=== PATIENT | male | born 1930 | race Caucasian/White ===

== ENCOUNTER 2016-06-28 21:58 | Inpatient (IN) | payer MEDICARE, OTHER ==
--- NOTE | ~2016-06-28 | HP ---
History And Physical [place] [address] [facility] [place]. [address] NAME: RAJESH GARCIA : 32 STATUS : ADM Coreen PAT#: [id number] AGE: 86 ADM/REG DATE : 06/28/16 MR#: [id number] REPORT SERV DATE: 06/29/16 DICTATED BY: RODNEY DOVER DATE: 06/29/16 REPORT STATUS : Draft TRANSCRIBED BY: MODL DATE: 06/29/16 DATE OF ADMISSION: 06/28/2016 CHIEF COMPLAINT: Weakness and altered mental status. HISTORY OF PRESENT ILLNESS: This is an 86-year-old male with a history of atrial fibrillation, history of CVA, and coronary artery disease, who presents to the emergency room at [facility] with the above-mentioned complaint. History is obtained from Mr. Garcia, but more so from his and daughter, who are at bedside, and reviewing data available on the [employer] system. According to his available data, Mr. Garcia was just fine yesterday in the morning and somewhere around 4 p.m., he started having an episode of chills. His states he had become feverish and had a severe bout of chills and no matter how many blankets she put on him, he continued to shake. Unfortunately, she did not think of checking his temperature. After a while, he wanted to go to the bathroom and she helped him go there, but once he got to the bathroom she stays he completely lost control. He became totally disoriented and confused, did not know what to do and he got so bad that she had to help him back to the bedroom and make him lie down. She called her daughter, and they called EMS, the patient was subsequently brought to the emergency room to be evaluated. According to the daughter, when the EMS got there, he had a temperature of 102 degrees Fahrenheit. During this time, they say he has not had any nausea, vomiting, or diarrhea. He has not had any dysuria, but they feel he might have had to go more frequently than usual. He has not had any cough or any other symptoms at all. in the emergency room, initial workup including a chest x-ray and CT of the brain were unremarkable. EKG showed atrial fibrillation with rapid ventricular response. Urinalysis was not significant. When he presented here, his heart rate was 160 and temperature was 99.7 with a rectal temperature of 102.1. WBC was 15.4. Hospitalist Service was asked to admit him for further evaluation and treatment. At the time of my evaluation, Mr. Garcia was quite confused. He was really unable to give any relevant answers. Most of the review of systems was through the family. He has not had any recent chest pain or palpitations. He did not have any orthopnea. He has not had any recent cough, hemoptysis, night sweats, or weight loss. He has not had any loss of consciousness. No history of nausea, vomiting, diarrhea, or dysuria. No history of hematemesis, hematochezia, or hematuria. No other history of recent travel or exposures other than those mentioned above. PAST MEDICAL HISTORY: Significant for history of atrial fibrillation, coronary artery disease with PTCA and stent placement, history of CVA in the past, essential hypertension, history of diverticulitis, peripheral vascular disease with right carotid endarterectomy, history of CVA with slight left-sided weakness, and history of Clostridium difficile colitis. He has also had an appendectomy and jejunal resection. SOCIAL HISTORY: He has a very remote history of smoking, but denies any alcohol use or History And Physical [address] [address] NAME: RAJESH GARCIA : 32 STATUS : ADM Coreen PAT#: [id number] AGE: 86 ADM/REG DATE : 06/28/16 MR#: [id number] REPORT SERV DATE: 06/29/16 DICTATED BY: RODNEY DOVER DATE: 06/29/16 REPORT STATUS : Draft TRANSCRIBED BY: SHIVA DATE: 06/29/16 recreational drug use. FAMILY HISTORY: Noncontributory. MEDICATIONS: Medications at home were reviewed by me in the chart today and reordered by me. REVIEW OF SYSTEMS: As in history of present illness. All other systems were reviewed and are quite unremarkable. PHYSICAL EXAMINATION: GENERAL: This is a pleasant 86-year-old, quite confused, unable to answer any questions relevantly. He follows some commands. HEENT: His head is atraumatic, normocephalic. The pupils are equal and reacting to light and accommodating. External ocular muscles are intact. Membranes are moist and pink. Sclerae are nonicteric. NECK: Supple with no jugular venous distention, lymphadenopathy, or thyromegaly. LUNGS: Clear to auscultation with no wheezes, rubs, or crackles. HEART: Heart sounds are regular with no murmurs, rubs, or gallops. ABDOMEN: Soft, nontender. Bowel sounds are present. EXTREMITIES: Show no cyanosis, clubbing, or edema. NEUROLOGIC: Grossly intact. No focal sensory or motor deficits. Higher functions appeared intact. Gait was not examined. VITAL SIGNS: Today show a temperature of 101.2, pulse 102, respirations 23 a minute, blood pressure is 132/98 upon arrival, oxygen saturations are 95%, breathing 2 L of oxygen via nasal cannula. LABORATORY DATA: Reviewed on the [employer] system showed a normal CMP with a blood glucose of 109. Liver numbers were within normal limits. Digoxin level was 0.3. Lactate was 1.7 today. CBC showed a white blood cell count of 15,400, hemoglobin was 13.6, hematocrit 41.4, and platelet count was 260,000. Urinalysis was unremarkable. Films of the chest x-ray were reviewed by me on the PACS today and interpreted by me. Per my interpretation, there is normal bony architecture with volume loss on the right side with no new infiltrates, consolidations, or pleural effusions seen. Films of the CT scan of his brain were reviewed by me on the PACS today and official Radiology comments were also reviewed. There is no acute intracranial process at this time. A 12-lead EKG done in the emergency room was reviewed and interpreted by me. There is atrial fibrillation with rapid ventricular response at 142 per minute. IMPRESSION: 1. Generalized weakness. 2. Altered mental status. 3. Sepsis. History And Physical [address] [address] NAME: RAJESH GARCIA : 32 STATUS : ADM Coreen PAT#: [id number] AGE: 86 ADM/REG DATE : 06/28/16 MR#: [id number] REPORT SERV DATE: 06/29/16 DICTATED BY: RODNEY DOVER DATE: 06/29/16 REPORT STATUS : Draft TRANSCRIBED BY: MODL DATE: 06/29/16 4. Hypertension. 5. Atrial fibrillation with rapid ventricular response. 6. Coronary artery disease with PTCA and stent placement. 7. History of cerebrovascular accident. 8. History of diverticulitis. 9. Peripheral vascular disease with right carotid endarterectomy. 10.History of Clostridium difficile colitis. PLAN: We will admit Mr. Garcia to the Hospitalist Service with telemetry for a 24-hour observation period. After cultures are drawn, we will start him on empiric IV antibiotics. Check his stool for C. difficile. We will also check a followup lactate. It is unclear where the source of the infection is. His lungs appear clear. There is no urinary tract infection. I question if he has some diverticulitis or Clostridium difficile colitis, although he does not complain, there have been no GI symptoms at all. Meanwhile, we will start him on IV fluids for volume resuscitation. Check chemistry, electrolytes, and replace as needed. We will also start him on Cardizem infusion for rate control. He is on Eliquis, which we will be continuing as well. Please see today's orders for details. I have discussed the above plans with the patient and the family. Questions were answered and they are agreeable to the above recommendations. Hospitalist Service will be following him during his stay. MR/MODL Rodney Dover M.D. / [id number] CC: MD Jose Alberto Limon M.D.
--- NOTE | ~2016-06-28 | DS ---
Discharge Summary [facility] [address] [place]. [address] NAME: RAJESH GARCIA : 32 STATUS : ADM IN [facility]#: [id number] AGE: 86 ADM/REG DATE : 06/29/16 MR#: [id number] REPORT SERV DATE: 07/05/16 DICTATED BY: SCHUYLER ESPANA DATE: 07/05/16 REPORT STATUS : Draft TRANSCRIBED BY: MODL DATE: 07/05/16 ADMISSION DATE: 06/29/2016 DISCHARGE DATE: 07/05/2016 DISCHARGE DIAGNOSES: 1. Atrial fibrillation with rapid ventricular response. 2. 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 3. Hematuria most likely due to Smith trauma. 4. History of cerebrovascular accident. 5. Generalized debility. 6. Sepsis, now resolved. 7. No evidence of pneumonia on the CT scan. 8. Possibility of a bladder tissue mass or clot on abdominal CT, currently stable and no intervention planned. 9. History of coronary artery disease. 10.Metabolic encephalopathy, now resolved. 11.He has history of diverticulitis, history of peripheral vascular disease with right carotid endarterectomy. He has a slight left-sided weakness due to prior cerebrovascular accident. He also has a history of Clostridium difficile colitis. CONSULTANTS DURING THIS HOSPITALIZATION: Dr. Nunez of Urology. INVASIVE PROCEDURES DONE DURING THIS HOSPITALIZATION: None. BRIEF HISTORY OF PRESENT ILLNESS: The patient is an 86-year-old male, who had altered mental status, weakness, fevers, and chills, so he was admitted. For detailed history and physical exam, please see note dictated by Dr. Rodney Villegas on 06/29/2016. HOSPITAL COURSE: After being admitted to the hospital, this patient was given broad-spectrum antibiotics. Aggressive IV fluid resuscitations were done. CT of the brain, noncontrasted was done in the emergency room which showed no acute CVA or other acute intracranial pathology. Stable moderate diffuse cerebral involutional changes and deep white matter changes, chronic microvascular ischemic changes, small to moderate old CVA, right posterior parietal watershed zone was noted. After being fluid resuscitated, this patient continually started to have fever. There was no clear location or source of an infection as chest x-ray was done that showed low lung volumes, basilar atelectasis, and possible left pleural fluid. CT without contrast of the chest was done, which showed extensive calcified atherosclerotic disease within the chest, abdomen, and pelvis, small bilateral pleural effusions and basilar atelectasis with consolidation. These findings were improved prior to previous focal region of scarring of the lung that anterior aspect of the left kidney. Stable cysts within the pancreas and the liver. The bladder was decompressed with a Smith catheter. There was a soft-tissue in the posterior and inferior aspect of the bladder that are consistent with a history of blood clots and hematuria. Cystoscopy is recommended to exclude a bladder neoplasm, so Urology saw the patient in consultation and because of the patient's underlying history and altered mental status, it would be not munoz to have the patient undergo anesthesia. I discussed his care with Dr. Nunez, and Dr. Nunez agreed that we can put Discharge Summary [address] [place]. [address] NAME: RAJESH GARCIA : 32 STATUS : ADM IN [facility]#: [id number] AGE: 86 ADM/REG DATE : 06/29/16 MR#: [id number] REPORT SERV DATE: 07/05/16 DICTATED BY: SCHUYLER ESPANA DATE: 07/05/16 REPORT STATUS : Draft TRANSCRIBED BY: MODRachael DATE: 07/05/16 him on Flomax, remove his Smith catheter and see how he does and then at a later date pursue cystoscopy if necessary. This patient's Eliquis was hold initially, but then his hematuria significantly improved. He still slightly had maybe mild pink urine, but he has not had any significant blood loss and his H and H remains stable on Eliquis. The 's concern was that he still remains confused. However, his confusion has improved. 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 This could be followed up in the outpatient setting after rehab. DISCHARGE DISPOSITION: To rehab. DISCHARGE ACTIVITY: Per facility. DISCHARGE DIET: Low sodium diet. DISCHARGE MEDICATIONS: Eliquis 5 mg p.o. twice daily, aspirin 81 mg once daily, digoxin 0.125 mg once daily, Remeron 30 mg once at bedtime, Lopressor 50 mg three times daily, Prilosec 40 mg once every morning, Tylenol 650 mg once daily, Seroquel 25 mg once at bedtime, Flomax 0.4 mg once daily, Crestor 10 mg once daily, Probiotics as needed. DISCHARGE FOLLOWUP: With Dr. Jose Alberto Cunningham post rehab. More than 35 minutes spent planning this patient's discharge, reconciling medications, discussing hospital care over the phone with the , and documenting this discharge in signing all forms for [facility]. DICTATED BY: Anh Lawrence/SHIVA Schuyler Espana M.D. / [id number] CC: Anh Lawrence Richard [facility]
--- NOTE | ~2016-06-28 | CN ---
Consultation Report [place] [id number] [place]. [address] NAME: RAJESH GARCIA : 32 STATUS : ADM IN PAT#: [id number] AGE: 86 ADM/REG DATE : 06/29/16 MR#: [id number] REPORT SERV DATE: 07/01/16 DICTATED BY: Leslie NAVA DATE: 06/30/16 REPORT STATUS : Draft TRANSCRIBED BY: MODL DATE: 06/30/16 CONSULTATION DATE OF CONSULTATION: 06/30/2016 CHIEF COMPLAINT: Gross hematuria. HISTORY OF PRESENT ILLNESS: Mr. Garcia is an 86-year-old white male, admitted with sepsis of unknown origin and acute mental status change as well as lethargy. It is unclear to me whether he had a catheter when he came in, but I am inclined to think that he did not. At any rate, he had an episode of chills and fever, came to the emergency room. His maximum temperature was 102. There were no particular symptoms except maybe for some frequency. His admission urinalysis was fairly unremarkable. Catheter now has pink-tinged urine. There is no documented trauma. PAST MEDICAL HISTORY: 1. Atrial fibrillation. 2. CAD, status post PTCA. 3. Previous CVA. 4. Hypertension. 5. Diverticulitis. 6. Peripheral vascular disease. 7. C difficile colitis. PAST SURGICAL HISTORY: 1. Appendectomy. 2. Jejunal resection. 3. Right carotid endarterectomy. 4. PTCA with stent. HOME MEDICATIONS: Acetaminophen, Eliquis, aspirin, digoxin, metoprolol, mirtazapine, omeprazole, rosuvastatin, and probiotic. ALLERGIES: NO KNOWN DRUG ALLERGIES. FAMILY HISTORY: Negative for urologic disease. SOCIAL HISTORY: Negative for current smoking. REVIEW OF SYSTEMS: A full 12-point review of systems is negative as obtained at the bedside from available conversants. PHYSICAL EXAMINATION: GENERAL: Pleasant 86-year-old white male, appears confused. VITAL SIGNS: Currently Consultation Report [place] [id number] [place]. [address] NAME: RAJESH GARCIA : 32 STATUS : ADM IN PAT#: [id number] AGE: 86 ADM/REG DATE : 06/29/16 MR#: [id number] REPORT SERV DATE: 05/25/17 DICTATED BY: Leslie NAVA DATE: 06/30/16 REPORT STATUS : Draft TRANSCRIBED BY: SHIVA DATE: 06/30/16 afebrile, T-max 102. HEENT: Normocephalic, atraumatic. LUNGS: No respiratory distress. HEART: Regular rate and rhythm. ABDOMEN: Nontender, nondistended. No suprapubic distention. No CVA tenderness. Indwelling Smith catheter draining light pink to clear urine without difficulty. EXTREMITIES: No peripheral edema noted. PERTINENT LABORATORY: Creatinine 0.9. Hemoglobin 13.1, white count 10,400. CT of the abdomen and pelvis was reviewed and shows decompressed bladder with some soft tissue in the bladder consistent with clot or tumor. He has no evidence of hydronephrosis or other significant pathology. IMPRESSION: 1. Hematuria, mild, possibly traumatic. 2. Possible filling defect of the bladder consistent with clot or tumor. PLAN: 1. I would leave his Smith for now until the source of his confusion is better elucidated. If it worsens, he would need a 24-Green[place] 3-way Smith catheter. 2. Depending upon his clinical course, he will need an eventual cystoscopy, but there is no reason to proceed with that now. I will follow while he is in the hospital. JPEve/SHIVA Leslie Nava M.D. / [id number] CC: MD Jose Alberto Limon M.D.
[2016-06-28 21:47] LABS: BASOPHILS 0.2 %; BASOPHILS ABSOLUTE 0.03 10/3/uL (0.0-0.16); EOSINOPHILS 0.2 %; EOSINOPHILS ABSOLUTE 0.03 10/3/uL (0.0-0.53); ER CBC TAT 0 Hrs 12 Mins; HEMATOCRIT 41.4 % (40.0-51.0); HEMOGLOBIN 13.6 g/dL (13.6-17.8); IMMATURE GRANULOCYTES 0.5 %; IMMATURE GRANULOCYTES ABSOLUTE 0.07 10/3/uL (0.0-0.11); LYMPHOCYTES 1.8 %; LYMPHOCYTES ABSOLUTE 0.28 10/3/uL (0.67-4.30); MEAN CORPUS HGB CONC 32.9 g/dL (32.0-36.0); MEAN CORPUSCULAR HEMOGLOB 31.3 pg (26.0-34.0); MEAN PLATELET VOLUME 10.8 fL (9.2-13.0); MONOCYTES 4.8 %; MONOCYTES ABSOLUTE 0.73 10/3/uL (0.21-1.20); NEUTROPHILS 92.5 %; NEUTROPHILS ABSOLUTE 14.22 10/3/uL (2.02-8.40); RBC DISTRIBUTION WIDTH 15.7 % (12.0-16.0); RED CELL COUNT 4.35 10/6/uL (4.7-6.1); WHITE BLOOD CELLS 15.4 10/3/uL (4.5-10.5)
[2016-06-28 21:48] LABS: MANUAL DIFF NO %; MEAN CORPUSCULAR VOLUME 95.2 fL (80-100); PLATELET COUNT 260 10/3/uL (150-400)
[2016-06-28 21:51] LABS: INTERNATIONAL NORMAL RATI 1.3 UNITS (-); PARTIAL THROMBO TIME 32.2 SEC (22.5-37.2)
[2016-06-28 21:58] LABS: WBC (NOT ORDERED) (RFLEX) 0 (0-5)
[~2016-06-28 21:58] MED LIST: ASA5GR PO; ASAB PO; ASABAYER PO; BEN25 PO; C5 PO; CARDCD120 PO; COUMADIN7.5 MG PO; CULTURELLE PO; DIGITEK0.125 MG PO; FLAGIV500 PO; HYDROCHLOROT25 MG PO; LAN125 PO; LIPITOR40 PO; LIPITOR80 MG PO; LOP100 PO; LOP25 PO; LOP50 PO; LOTEMAX0.5 % OPH; LOVENOX1C SC; NORCO1 TA1 PO; PCET PO; PRAVACHOL40 MG PO; PROAIR HFA PO; TOPXL100 PO; TOPXL50 PO; VANC125UDL PO; VASOTEC10 PO; VASOTEC20 MG PO; VASOTEC5 PO; Z-PAK PO
[2016-06-28 21:59] LABS: LACTATE 1.7 MMOL/L (0.3-2.4)
[2016-06-28] MEDS ORDERED: LAN125 PO (21:59)
[2016-06-28] MEDS ORDERED: REMERON30 MG PO (21:59)
[2016-06-28] MEDS ORDERED: CRESTOR10 PO (22:00)
[2016-06-28] MEDS ORDERED: LOP25 PO (22:00)
[2016-06-28] MEDS ORDERED: ELIQUIS 5 MG TAB5 MG PO (22:01)
[2016-06-28] MEDS ORDERED: PROBIOTIC PO (22:02)
[2016-06-28] MEDS ORDERED: ASAB PO (22:02)
[2016-06-28] MEDS ORDERED: PRILOSEC40 MG PO (22:02)
[2016-06-28] MEDS ORDERED: 8 HOUR650 MG PO (22:03)
[2016-06-28 22:08] LABS: CALCIUM, SERUM 8.7 MG/DL (8.5-10.4); CHLORIDE, SERUM 109 MMOL/L (96-112); CO2 (CARBON DIOXIDE) 25 MMOL/L (24-34); CREATININE 0.93 MG/DL (0.70-1.30); DIGOXIN 0.3 NG/ML (0.8-2.0); GFR AFRICAN AMERICAN 87 ML/MIN (>=60); GFR NON AFRICAN AMERICAN 75 ML/MIN (>=60); GLUCOSE, SERUM 109 MG/DL (60-99); POTASSIUM, SERUM 3.7 MMOL/L (3.5-5.3); SGOT(AST) 16 U/L (5-40); SGPT(ALT) 17 U/L (5-65); SODIUM, SERUM 141 MMOL/L (135-148); TOTAL PROTEIN 7.4 G/DL (6.0-8.5)
[2016-06-28 22:09] LABS: A/G RATIO 0.8 (0.7-1.9); ALBUMIN 3.2 G/DL (3.5-5.0); ALKALINE PHOSPHATASE 88 U/L (45-117); BUN (BLOOD UREA NITROGEN) 16 MG/DL (6-23); GLOBULIN 4.2 G/DL (2.5-4.1); TOTAL BILIRUBIN 0.9 MG/DL (0-1.2)
[2016-06-28 22:10] LABS: ASCORBIC ACID (UR NOT ORDER) NEG (NEG); BILIRUBIN, URINE NEGATIVE (NEG); ER URINALYSIS TAT 0 Hrs 13 Mins; KETONE, URINE TRACE MG/DL (NEG); LEUKOCYTE ESTERASE(NOT OR NEG (NEG); NITRITE (URINE) NEG (NEG)
[2016-06-28 22:32] LABS: PROCALCITONIN 0.31 ng/mL (<0.5)
[2016-06-29 05:50] LABS: BASOPHILS 0.3 %; BASOPHILS ABSOLUTE 0.03 10/3/uL (0.0-0.16); EOSINOPHILS 0.5 %; EOSINOPHILS ABSOLUTE 0.06 10/3/uL (0.0-0.53); HEMATOCRIT 39.5 % (40.0-51.0); IMMATURE GRANULOCYTES 0.3 %; IMMATURE GRANULOCYTES ABSOLUTE 0.04 10/3/uL (0.0-0.11); LYMPHOCYTES 7.5 %; LYMPHOCYTES ABSOLUTE 0.87 10/3/uL (0.67-4.30); MEAN CORPUS HGB CONC 32.9 g/dL (32.0-36.0); MEAN CORPUSCULAR HEMOGLOB 31.6 pg (26.0-34.0); MEAN CORPUSCULAR VOLUME 96.1 fL (80-100); MEAN PLATELET VOLUME 10.7 fL (9.2-13.0); MONOCYTES 7.1 %; MONOCYTES ABSOLUTE 0.82 10/3/uL (0.21-1.20); NEUTROPHILS 84.3 %; NEUTROPHILS ABSOLUTE 9.72 10/3/uL (2.02-8.40); PLATELET COUNT 249 10/3/uL (150-400); RBC DISTRIBUTION WIDTH 15.8 % (12.0-16.0); RED CELL COUNT 4.11 10/6/uL (4.7-6.1); WHITE BLOOD CELLS 11.5 10/3/uL (4.5-10.5)
[2016-06-29 05:54] LABS: MANUAL DIFF NO %
[2016-06-29 06:11] LABS: CALCIUM, SERUM 8.6 MG/DL (8.5-10.4); CHLORIDE, SERUM 113 MMOL/L (96-112); CO2 (CARBON DIOXIDE) 25 MMOL/L (24-34); CREATININE 0.75 MG/DL (0.70-1.30); GFR AFRICAN AMERICAN 98 ML/MIN (>=60); GFR NON AFRICAN AMERICAN 84 ML/MIN (>=60); GLUCOSE, SERUM 101 MG/DL (60-99); POTASSIUM, SERUM 3.7 MMOL/L (3.5-5.3); SODIUM, SERUM 146 MMOL/L (135-148)
[2016-06-29 06:14] LABS: BUN (BLOOD UREA NITROGEN) 11 MG/DL (6-23); PHOSPHORUS, SERUM 3.1 MG/DL (2.5-4.5)
[2016-06-29 21:02] LABS: HEMATOCRIT 38.5 % (40.0-51.0); HEMOGLOBIN 12.6 g/dL (13.6-17.8)
[2016-06-30 01:26] LABS: BASOPHILS 0.2 %; BASOPHILS ABSOLUTE 0.02 10/3/uL (0.0-0.16); EOSINOPHILS 0.1 %; EOSINOPHILS ABSOLUTE 0.01 10/3/uL (0.0-0.53); HEMATOCRIT 38.8 % (40.0-51.0); HEMOGLOBIN 13.1 g/dL (13.6-17.8); IMMATURE GRANULOCYTES 0.6 %; IMMATURE GRANULOCYTES ABSOLUTE 0.06 10/3/uL (0.0-0.11); LYMPHOCYTES 6.8 %; LYMPHOCYTES ABSOLUTE 0.71 10/3/uL (0.67-4.30); MEAN CORPUS HGB CONC 33.8 g/dL (32.0-36.0); MEAN CORPUSCULAR HEMOGLOB 32.1 pg (26.0-34.0); MEAN CORPUSCULAR VOLUME 95.1 fL (80-100); MEAN PLATELET VOLUME 10.2 fL (9.2-13.0); MONOCYTES ABSOLUTE 0.62 10/3/uL (0.21-1.20); NEUTROPHILS 86.3 %; NEUTROPHILS ABSOLUTE 8.96 10/3/uL (2.02-8.40); PLATELET COUNT 231 10/3/uL (150-400); RBC DISTRIBUTION WIDTH 15.7 % (12.0-16.0); RED CELL COUNT 4.08 10/6/uL (4.7-6.1); WHITE BLOOD CELLS 10.4 10/3/uL (4.5-10.5)
[2016-06-30 01:28] LABS: MANUAL DIFF NO %
[2016-06-30 01:42] LABS: BUN (BLOOD UREA NITROGEN) 10 MG/DL (6-23); CALCIUM, SERUM 8.1 MG/DL (8.5-10.4); CHLORIDE, SERUM 108 MMOL/L (96-112); CO2 (CARBON DIOXIDE) 26 MMOL/L (24-34); GFR AFRICAN AMERICAN 91 ML/MIN (>=60); GFR NON AFRICAN AMERICAN 78 ML/MIN (>=60); GLUCOSE, SERUM 114 MG/DL (60-99); PHOSPHORUS, SERUM 2.3 MG/DL (2.5-4.5); POTASSIUM, SERUM 3.5 MMOL/L (3.5-5.3)
[2016-06-30 01:46] LABS: SODIUM, SERUM 139 MMOL/L (135-148)
[2016-06-30 10:11] LABS: HEMATOCRIT 39.8 % (40.0-51.0); HEMOGLOBIN 13.1 g/dL (13.6-17.8)
[2016-07-01 05:59] LABS: BASOPHILS 0.1 %; BASOPHILS ABSOLUTE 0.01 10/3/uL (0.0-0.16); EOSINOPHILS 1.1 %; EOSINOPHILS ABSOLUTE 0.09 10/3/uL (0.0-0.53); HEMATOCRIT 38.8 % (40.0-51.0); HEMOGLOBIN 13.2 g/dL (13.6-17.8); IMMATURE GRANULOCYTES 0.4 %; IMMATURE GRANULOCYTES ABSOLUTE 0.03 10/3/uL (0.0-0.11); LYMPHOCYTES 9.3 %; LYMPHOCYTES ABSOLUTE 0.79 10/3/uL (0.67-4.30); MEAN CORPUSCULAR HEMOGLOB 32.1 pg (26.0-34.0); MEAN CORPUSCULAR VOLUME 94.4 fL (80-100); MEAN PLATELET VOLUME 10.7 fL (9.2-13.0); MONOCYTES 11.8 %; NEUTROPHILS 77.3 %; NEUTROPHILS ABSOLUTE 6.59 10/3/uL (2.02-8.40); PLATELET COUNT 241 10/3/uL (150-400); RBC DISTRIBUTION WIDTH 15.4 % (12.0-16.0); RED CELL COUNT 4.11 10/6/uL (4.7-6.1); WHITE BLOOD CELLS 8.5 10/3/uL (4.5-10.5)
[2016-07-01 06:02] LABS: MANUAL DIFF NO %
[2016-07-01 06:10] LABS: ALBUMIN 2.6 G/DL (3.5-5.0); BUN (BLOOD UREA NITROGEN) 12 MG/DL (6-23); CALCIUM, SERUM 8.4 MG/DL (8.5-10.4); CHLORIDE, SERUM 107 MMOL/L (96-112); CO2 (CARBON DIOXIDE) 27 MMOL/L (24-34); CREATININE 0.79 MG/DL (0.70-1.30); GFR AFRICAN AMERICAN 96 ML/MIN (>=60); GFR NON AFRICAN AMERICAN 82 ML/MIN (>=60); GLUCOSE, SERUM 101 MG/DL (60-99); PHOSPHORUS, SERUM 2.7 MG/DL (2.5-4.5); POTASSIUM, SERUM 3.1 MMOL/L (3.5-5.3); SODIUM, SERUM 141 MMOL/L (135-148)
[2016-07-02 05:27] LABS: BASOPHILS 0.2 %; BASOPHILS ABSOLUTE 0.02 10/3/uL (0.0-0.16); EOSINOPHILS 3.1 %; EOSINOPHILS ABSOLUTE 0.26 10/3/uL (0.0-0.53); HEMATOCRIT 39.8 % (40.0-51.0); HEMOGLOBIN 13.1 g/dL (13.6-17.8); IMMATURE GRANULOCYTES 0.4 %; IMMATURE GRANULOCYTES ABSOLUTE 0.03 10/3/uL (0.0-0.11); LYMPHOCYTES 7.1 %; MANUAL DIFF NO %; MEAN CORPUS HGB CONC 32.9 g/dL (32.0-36.0); MEAN CORPUSCULAR HEMOGLOB 31.4 pg (26.0-34.0); MEAN CORPUSCULAR VOLUME 95.4 fL (80-100); MEAN PLATELET VOLUME 10.4 fL (9.2-13.0); MONOCYTES ABSOLUTE 0.68 10/3/uL (0.21-1.20); NEUTROPHILS 81.2 %; PLATELET COUNT 244 10/3/uL (150-400); RBC DISTRIBUTION WIDTH 15.6 % (12.0-16.0); RED CELL COUNT 4.17 10/6/uL (4.7-6.1); WHITE BLOOD CELLS 8.5 10/3/uL (4.5-10.5)
[2016-07-02 05:42] LABS: BUN (BLOOD UREA NITROGEN) 12 MG/DL (6-23); CHLORIDE, SERUM 113 MMOL/L (96-112); CO2 (CARBON DIOXIDE) 24 MMOL/L (24-34); CREATININE 0.73 MG/DL (0.70-1.30); GFR AFRICAN AMERICAN 99 ML/MIN (>=60); GFR NON AFRICAN AMERICAN 85 ML/MIN (>=60); GLUCOSE, SERUM 101 MG/DL (60-99); PHOSPHORUS, SERUM 2.3 MG/DL (2.5-4.5); POTASSIUM, SERUM 3.5 MMOL/L (3.5-5.3); SODIUM, SERUM 143 MMOL/L (135-148)
[2016-07-03 06:56] LABS: BASOPHILS 0.3 %; BASOPHILS ABSOLUTE 0.03 10/3/uL (0.0-0.16); EOSINOPHILS 0.7 %; EOSINOPHILS ABSOLUTE 0.08 10/3/uL (0.0-0.53); HEMATOCRIT 43.4 % (40.0-51.0); HEMOGLOBIN 14.6 g/dL (13.6-17.8); IMMATURE GRANULOCYTES 0.5 %; IMMATURE GRANULOCYTES ABSOLUTE 0.05 10/3/uL (0.0-0.11); LYMPHOCYTES 9.4 %; LYMPHOCYTES ABSOLUTE 1.02 10/3/uL (0.67-4.30); MEAN CORPUS HGB CONC 33.6 g/dL (32.0-36.0); MEAN CORPUSCULAR HEMOGLOB 31.7 pg (26.0-34.0); MEAN CORPUSCULAR VOLUME 94.1 fL (80-100); MEAN PLATELET VOLUME 10.4 fL (9.2-13.0); MONOCYTES 7.9 %; MONOCYTES ABSOLUTE 0.86 10/3/uL (0.21-1.20); NEUTROPHILS 81.2 %; NEUTROPHILS ABSOLUTE 8.78 10/3/uL (2.02-8.40); PLATELET COUNT 308 10/3/uL (150-400); RBC DISTRIBUTION WIDTH 15.3 % (12.0-16.0); RED CELL COUNT 4.61 10/6/uL (4.7-6.1); WHITE BLOOD CELLS 10.8 10/3/uL (4.5-10.5)
[2016-07-03 07:05] LABS: MANUAL DIFF NO %
[2016-07-03 07:11] LABS: BUN (BLOOD UREA NITROGEN) 11 MG/DL (6-23); CALCIUM, SERUM 8.9 MG/DL (8.5-10.4); CHLORIDE, SERUM 111 MMOL/L (96-112); CO2 (CARBON DIOXIDE) 27 MMOL/L (24-34); CREATININE 0.83 MG/DL (0.70-1.30); GFR AFRICAN AMERICAN 94 ML/MIN (>=60); GFR NON AFRICAN AMERICAN 81 ML/MIN (>=60); GLUCOSE, SERUM 108 MG/DL (60-99); POTASSIUM, SERUM 3.5 MMOL/L (3.5-5.3); SODIUM, SERUM 145 MMOL/L (135-148)
[2016-07-04 05:37] LABS: BASOPHILS 0.4 %; BASOPHILS ABSOLUTE 0.03 10/3/uL (0.0-0.16); EOSINOPHILS 4.2 %; EOSINOPHILS ABSOLUTE 0.32 10/3/uL (0.0-0.53); HEMATOCRIT 39.2 % (40.0-51.0); HEMOGLOBIN 12.9 g/dL (13.6-17.8); IMMATURE GRANULOCYTES 0.6 %; IMMATURE GRANULOCYTES ABSOLUTE 0.05 10/3/uL (0.0-0.11); LYMPHOCYTES 12.6 %; LYMPHOCYTES ABSOLUTE 0.97 10/3/uL (0.67-4.30); MEAN CORPUS HGB CONC 32.9 g/dL (32.0-36.0); MEAN CORPUSCULAR HEMOGLOB 31.2 pg (26.0-34.0); MEAN CORPUSCULAR VOLUME 94.7 fL (80-100); MEAN PLATELET VOLUME 10.4 fL (9.2-13.0); MONOCYTES 8.3 %; MONOCYTES ABSOLUTE 0.64 10/3/uL (0.21-1.20); NEUTROPHILS 73.9 %; NEUTROPHILS ABSOLUTE 5.69 10/3/uL (2.02-8.40); PLATELET COUNT 275 10/3/uL (150-400); RBC DISTRIBUTION WIDTH 15.4 % (12.0-16.0); RED CELL COUNT 4.14 10/6/uL (4.7-6.1); WHITE BLOOD CELLS 7.7 10/3/uL (4.5-10.5)
[2016-07-04 05:38] LABS: MANUAL DIFF NO %
[2016-07-04 05:50] LABS: ALBUMIN 2.6 G/DL (3.5-5.0); BUN (BLOOD UREA NITROGEN) 13 MG/DL (6-23); CALCIUM, SERUM 8.6 MG/DL (8.5-10.4); CHLORIDE, SERUM 111 MMOL/L (96-112); CO2 (CARBON DIOXIDE) 27 MMOL/L (24-34); CREATININE 0.69 MG/DL (0.70-1.30); GFR AFRICAN AMERICAN 101 ML/MIN (>=60); GFR NON AFRICAN AMERICAN 87 ML/MIN (>=60); GLUCOSE, SERUM 96 MG/DL (60-99); PHOSPHORUS, SERUM 2.9 MG/DL (2.5-4.5); POTASSIUM, SERUM 3.4 MMOL/L (3.5-5.3); SODIUM, SERUM 145 MMOL/L (135-148)
[2016-07-05 06:00] LABS: ALBUMIN 2.7 G/DL (3.5-5.0); BUN (BLOOD UREA NITROGEN) 16 MG/DL (6-23); CALCIUM, SERUM 8.8 MG/DL (8.5-10.4); CHLORIDE, SERUM 111 MMOL/L (96-112); CO2 (CARBON DIOXIDE) 23 MMOL/L (24-34); CREATININE 0.85 MG/DL (0.70-1.30); GFR AFRICAN AMERICAN 93 ML/MIN (>=60); GFR NON AFRICAN AMERICAN 80 ML/MIN (>=60); GLUCOSE, SERUM 102 MG/DL (60-99); PHOSPHORUS, SERUM 3.2 MG/DL (2.5-4.5); POTASSIUM, SERUM 3.8 MMOL/L (3.5-5.3); SODIUM, SERUM 143 MMOL/L (135-148)
== END 2016-07-07 18:00 | DRG 871 ==
LOC: ER 21:58 → 6NO 22:00
PROVIDERS: Hospitalist; Internal Medicine; Nurse Practitioner Acute Care
DX: A41.9 Sepsis, unspecified organism (principal); G93.41 Metabolic encephalopathy; K86.2 Cyst of pancreas; I69.354 Hemiplegia and hemiparesis following cerebral infarction affecting left non-dominant side; F05 Delirium due to known physiological condition; T83.83XA Hemorrhage due to genitourinary prosthetic devices, implants and grafts, initial encounter; F01.50 Vascular dementia, unspecified severity, without behavioral disturbance, psychotic disturbance, mood disturbance, and anxiety; I25.10 Atherosclerotic heart disease of native coronary artery without angina pectoris; I73.9 Peripheral vascular disease, unspecified; Y84.6 Urinary catheterization as the cause of abnormal reaction of the patient, or of later complication, without mention of misadventure at the time of the procedure; N32.89 Other specified disorders of bladder; K76.89 Other specified diseases of liver; Z95.5 Presence of coronary angioplasty implant and graft; Z90.49 Acquired absence of other specified parts of digestive tract; Z87.891 Personal history of nicotine dependence; Z95.828 Presence of other vascular implants and grafts; Z86.19 Personal history of other infectious and parasitic diseases; Z79.82 Long term (current) use of aspirin
CPT/HCPCS: 70450; 71010; 71250; 74176; 80048; 80053; 80069; 80162; 81001; 83605; 83735; 84100; 84132; 84145; 84443; 85014; 85018; 85025; 85610; 85730; 86713; 87040; 87449; 93005; 96374; 97110-GP; 97116-GP; 97163-GP; 97530-GP; 99285; A9270-GY; G8978-CK-GP; G8979-CJ-GP; J0360; J2543; J3370

== ENCOUNTER 2016-07-23 20:03 | Inpatient (IN) | payer MEDICARE, OTHER ==
--- NOTE | ~2016-07-23 | DS ---
Discharge Summary [facility] [address] [place]. [address] NAME: RAJESH GARCIA : 32 STATUS : DIS IN PAT#: [id number] AGE: 86 ADM/REG DATE : 07/24/16 MR#: [id number] REPORT SERV DATE: 07/26/16 DICTATED BY: ROSMERY HAMMOND II DATE: 07/25/16 REPORT STATUS : Draft TRANSCRIBED BY: MODL DATE: 07/25/16 ADMISSION DATE: 07/24/2016 DISCHARGE DATE: 07/25/2016 DISCHARGE DIAGNOSES: 1. Likely gastroenteritis. 2. Acute kidney injury. 3. Atrial fibrillation with rapid ventricular rate. 4. Leukocytosis and tachycardia, meeting criteria for sepsis, though more likely related to viral illness and dehydration. 5. History of Clostridium difficile. 6. History of coronary artery disease. 7. History of peptic ulcer disease. 8. History of hypertension. 9. History of cerebrovascular accident. BRIEF HISTORY OF PRESENT ILLNESS: The patient is an 86-year-old male with the above history, who presented to [facility] due to acute nausea, vomiting, and diarrhea, found to have leukocytosis and EFRAIN on admission. For detailed history and physical examination, please see Dr. eVlasquez's note from 07/24/2016. HOSPITAL COURSE: On admission, the patient's C. difficile was negative. Parasite screen and fecal leukocytes were negative. Lactate was normal. He had a mildly elevated white count of 15.9 and his creatinine was elevated at 1.47. He was initially started on Zosyn as the CT of his abdomen showed a fluid collection in the gallbladder fossa, measuring 10 x 24 mm, which may represent the gallbladder or postsurgical fluid if the patient is status post cholecystectomy. There was a band of soft tissue thickening extending anterior to this over the hepatic flexure, containing some air bubbles, measuring 70 x 36 mm, possibly representing a fistula forming abscess or postsurgical change. Otherwise, liquid stool throughout the colon which may be due to underlying gastroenteritis or diarrheal illness. No obstruction noted. Minimal diverticulosis of the sigmoid colon without evidence of acute diverticulitis. Otherwise, a stable cystic lesion in the pancreatic tail measuring up to 24 mm in size with recommendation for attention on CT followup. A gallbladder ultrasound was subsequently done to evaluate and showed the patient was status post cholecystectomy with a trace amount of fluid in the gallbladder fossa. Interestingly enough, neither the patient nor his ever remember having a cholecystectomy and after talking with Radiology, it is possible his gallbladder is extremely contracted; however, it did appear to be surgically absent. There are no records from any surgery here that show the patient has had a cholecystectomy. The patient is completely asymptomatic in his right upper quadrant and seems clinically irrelevant at this point, as the patient likely just had a viral or food- borne gastroenteritis, which has subsequently resolved fairly quickly. He was given fluids, and his EFRAIN is now back to within normal limits at 0.97, and white count also normal. He is tolerating a diet, passing his bowels, and otherwise no complaints, so we will let him go home and follow up with his primary care physician, Dr. Cunningham. Also of note, the patient was admitted with AFib with RVR, heart rate in the 110s to 120s. He was briefly placed on a Cardizem drip and his home metoprolol was resumed. The drip was quickly discontinued with Discharge Summary [address] [place]. [address] NAME: RAJESH GARCIA : 34 STATUS : DIS IN PAT#: [id number] AGE: 86 ADM/REG DATE : 07/24/16 MR#: [id number] REPORT SERV DATE: 07/26/16 DICTATED BY: ROSMERY HAMMOND II DATE: 07/25/16 REPORT STATUS : Draft TRANSCRIBED BY: SHIVA DATE: 07/25/16 fluids and home medications. The patient was continued on his Eliquis. DISCHARGE MEDICATIONS: 1. Eliquis 5 mg p.o. b.i.d. 2. Aspirin 81 mg p.o. daily. 3. Maximum D3 1 cap p.o. Tuesday. 4. Lanoxin 0.125 mg p.o. daily. 5. Remeron 30 mg p.o. at bedtime. 6. Lopressor 50 mg p.o. t.i.d. 7. Prilosec 40 mg p.o. daily. 8. Flomax 0.4 mg p.o. daily. 9. RisaQuad capsule daily. 10.Crestor 10 mg p.o. at bedtime. 11.Tylenol 8-hour extended release 650 mg tablet. DISCHARGE INSTRUCTIONS: The patient will follow up with Dr. Cunningham in one to two weeks. DICTATED BY: MD IGGY Magallon II/MODL Rosmery Hammond II, MD / [id number] CC: MD Jose Alberto Magallon II, M.D.
--- NOTE | ~2016-07-23 | HP ---
History And Physical [address] [place]. [address] NAME: RAJESH GARCIA : 34 STATUS : ADM IN PAT#: [id number] AGE: 86 ADM/REG DATE : 07/24/16 MR#: [id number] REPORT SERV DATE: 07/24/16 DICTATED BY: ROSMERY WALKER DATE: 07/23/16 REPORT STATUS : Draft TRANSCRIBED BY: MODL DATE: 07/23/16 DATE OF ADMISSION: 07/24/2016 POINT OF ENTRY: [facility] Emergency Department. PRIMARY CARE PHYSICIAN: Jose Alberto Cunningham M.D. CHIEF COMPLAINT: Nausea, vomiting, diarrhea. HISTORY OF PRESENT ILLNESS: Mr. Garcia is an 86-year-old gentleman with a history of atrial fibrillation, hypertension, hyperlipidemia, coronary artery disease who was recently admitted to the Hospitalist Service for atrial fibrillation with RVR, sepsis of unclear etiology, and hematuria, who now presents to emergency department today with reports of acute onset of profuse, foul-smelling nausea, vomiting, and diarrhea. After the patient was discharged from our facility, 07/05/2016, he went to a local correction facility and did very well with his rehab and was actually discharged home earlier today. Family states that upon arriving home, patient then developed multiple, almost a dozen, episodes of profuse watery and foul smelling vomiting and diarrhea with associated nausea. They deny any abdominal pain, fevers, night sweats, chills, or any blood in the emesis or diarrhea. Initial evaluation in the emergency department for atrial fibrillation with RVR with heart rates in the hundred-teens to 120s. Labs notable for a creatinine of 1.47; white count 15.9. Urinalysis was clear. C. diff as well as Cryptosporidium and Giardia were negative. CT scan of the abdomen and pelvis showed changes consistent with gastritis as well as some concern for a possible right upper quadrant abdominal abscess with a tiny amount of air and fluid tracking from the anterior abdominal wall close to the gallbladder fossa. Patient was subsequently admitted to the Hospitalist Service for further evaluation and management. REVIEW OF SYSTEMS: Comprehensive review of systems otherwise negative, unless listed in history of present illness. PREVIOUS MEDICAL HISTORY: 1. Atrial fibrillation, on Eliquis. 2. Prior history of cerebrovascular accident. 3. Hypertension. 4. Hyperlipidemia. 5. History of peptic ulcer disease. 6. Coronary artery disease with prior PCI. 7. History of diverticulitis with jejunal wall perforation, status post repair. 8. Prior history of C. difficile colitis. SURGICAL HISTORY: 1. Right carotid endarterectomy. History And Physical [address] [address] NAME: RAJESH GARCIA : 34 STATUS : ADM IN [facility]#: [id number] AGE: 86 ADM/REG DATE : 07/24/16 MR#: [id number] REPORT SERV DATE: 07/24/16 DICTATED BY: ROSMERY WALKER DATE: 07/23/16 REPORT STATUS : Draft TRANSCRIBED BY: SHIVA DATE: 07/23/16 2. Appendectomy. 3. Jejunal wall repair. ALLERGIES: NO KNOWN DRUG ALLERGIES. HOME MEDICATIONS: 1. Tylenol 650 mg q.6 hours p.r.n. 2. Eliquis 5 mg b.i.d. 3. Aspirin 81 mg daily. 4. Vitamin D 10,000 units weekly. 5. Digoxin 0.125 mg daily. 6. Lopressor 50 mg t.i.d. 7. Remeron 30 mg at bedtime. 8. Omeprazole 40 mg daily. 9. Crestor 10 mg at bedtime. 10.Flomax 0.4 mg daily. 11.RisaQuad 1 tab daily. SOCIAL HISTORY: Denies any tobacco, alcohol, or illicits. FAMILY HISTORY: Mother with coronary artery disease. Father's history is unknown. He is an only child. LABS AND IMAGIN. White count 15.7, hemoglobin 15.0, hematocrit is 45.2, platelets 275, INR 1.2. 2. Sodium is 141, potassium 4.6, chloride 107, carbon dioxide 27, BUN 21, creatinine 1.47, glucose is 104, calcium is 9.3, protein is 8.1, albumin is 3.3, bilirubin is 0.4, ALT 29, AST 30, alkaline phosphatase is 130. 3. Lipase is 481. 4. Lactic acid 1.6, procalcitonin 0.08. 5. Urinalysis: Specific gravity is 1.020 with no evidence of any infection or hematuria. 6. CT scan of the abdomen and pelvis per overnight virtual radiology read shows tract of air in the right upper quadrant extending to the abdominal wall where there is a very tiny collection of fluid and air measuring less than 2 cm possible abscess. This tract extends from the gallbladder fossa to the right anterior abdominal wall. Fluid present within the colon which can be severe gastritis, please correlate clinically. 7. EKG per review shows atrial fibrillation with RVR, heart rate of 118. No evidence of acute ischemia or infarction. 8. Chest x-ray is pending at the time of dictation. PHYSICAL EXAMINATION: VITAL SIGNS: Temperature is 98.5 degrees Fahrenheit, pulse is 118, respirations 15, saturating 97% on room air, blood pressure 120/55. On recheck, blood pressure is now 122/50, heart rates in the low 100. GENERAL: Patient is awake, alert, and in no acute distress, resting comfortably. He is an elderly, male who is very hard of hearing. Family is at bedside. HEENT: Atraumatic and normocephalic. Dry mucous membranes. Pupils equal, round, reactive History And Physical [address] [address] NAME: RAJESH GARCIA : 34 STATUS : ADM IN [facility]#: [id number] AGE: 86 ADM/REG DATE : 07/24/16 MR#: [id number] REPORT SERV DATE: 07/24/16 DICTATED BY: ROSMERY WALKER DATE: 07/23/16 REPORT STATUS : Draft TRANSCRIBED BY: SHIVA DATE: 07/23/16 to light and accommodation. Extraocular movement intact. No scleral icterus. NECK: No jugular venous distention. No carotid bruits. CARDIAC: Irregularly irregular rate and rhythm. No murmurs or gallops. Normal S1, S2. LUNGS: Clear to auscultation bilaterally. No wheezes, rhonchi, or rales. ABDOMEN: Soft, nontender, nondistended with good bowel sounds. No rebound, guarding, rigidity. EXTREMITIES: Warm and well perfused. No cyanosis, clubbing, or edema. SKIN: Warm and dry except for some chronic venous stasis changes in lower extremities. PSYCH: Affect appropriate. NEURO: Alert and oriented x3. Cranial nerves II through XII grossly intact. Speech is normal. Gait not assessed. ASSESSMENT AND PLAN: Mr. Garcia is an 86-year-old gentleman who presents with acute onset of profuse nausea, vomiting, diarrhea, and found evidence of gastroenteritis with CT evidence concerning for possible right upper quadrant abscess. PROBLEM LIST: 1. Nausea, vomiting, diarrhea, likely gastroenteritis. 2. Acute kidney injury. 3. Atrial fibrillation with RVR. 4. Leukocytosis. 5. Possible right upper quadrant abdominal abscess. PLAN: 1. Nausea, vomiting, diarrhea, likely gastroenteritis. C. diff and Cryptosporidium and Giardia are negative. This likely represents a viral gastritis. We will treat supportively with IV fluids, antiemetics, as well as antidiarrheals. Follow up stool culture. 2. Possible right upper quadrant abdominal abscess. Patient has not had any procedures in the right upper quadrant recently that would explain the tract extending from the abdominal wall to the gallbladder fossa, unclear etiology at this time. He is pain free. Vital signs are stable, nontoxic-appearing. Lactic acid is negative as his procalcitonin. We will need to follow up formal radiology read in the morning. In the meantime, we will place patient empirically on IV Zosyn. We will also obtain a right upper quadrant ultrasound to also better visualize this area. 3. Leukocytosis, likely secondary to #1 and #2 above. Blood cultures have been obtained. Follow up stool cultures. Empiric IV antibiotics overnight. 4. Acute kidney injury and dehydration. I will provide IV fluid hydration. 5. Atrial fibrillation with RVR, likely in the setting of gastritis, dehydration, and not taking patient's oral metoprolol today secondary to #1 above. Patient is now rate controlled with diltiazem drip. Continue patient's home metoprolol as well as diltiazem drip and attempt to wean as tolerated tomorrow. Continue patient's home Eliquis. 6. DVT prophylaxis. The patient is on Eliquis. CODE STATUS: The patient wished to be full code. History And Physical [address] [place]. [address] NAME: RAJESH GARCIA : 34 STATUS : ADM IN [facility]#: [id number] AGE: 86 ADM/REG DATE : 07/24/16 MR#: [id number] REPORT SERV DATE: 07/24/16 DICTATED BY: ROSMERY WALKER DATE: 07/23/16 REPORT STATUS : Draft TRANSCRIBED BY: MODL DATE: 07/23/16 DAVID/MODL Rosmery Walker MD / [id number] CC: MD Jose Alberto Magallon II, M.D.
[~2016-07-23 20:03] MED LIST changes: +8 HOUR650 MG PO; +CRESTOR10 PO; +ELIQUIS 5 MG TAB5 MG PO; +PRILOSEC40 MG PO; +PROBIOTIC PO; +REMERON30 MG PO
[2016-07-23 20:07] LABS: BASOPHILS 0.1 %; BASOPHILS ABSOLUTE 0.01 10/3/uL (0.0-0.16); EOSINOPHILS 0.2 %; EOSINOPHILS ABSOLUTE 0.03 10/3/uL (0.0-0.53); IMMATURE GRANULOCYTES 0.6 %; IMMATURE GRANULOCYTES ABSOLUTE 0.09 10/3/uL (0.0-0.11); LYMPHOCYTES 4.6 %; LYMPHOCYTES ABSOLUTE 0.74 10/3/uL (0.67-4.30); MEAN CORPUS HGB CONC 33.2 g/dL (32.0-36.0); MEAN CORPUSCULAR HEMOGLOB 31.8 pg (26.0-34.0); MEAN CORPUSCULAR VOLUME 95.8 fL (80-100); MONOCYTES 2.4 %; MONOCYTES ABSOLUTE 0.39 10/3/uL (0.21-1.20); NEUTROPHILS 92.1 %; NEUTROPHILS ABSOLUTE 14.66 10/3/uL (2.02-8.40); PLATELET COUNT 275 10/3/uL (150-400); RBC DISTRIBUTION WIDTH 14.6 % (12.0-16.0); RED CELL COUNT 4.72 10/6/uL (4.7-6.1)
[2016-07-23 20:08] LABS: ER CBC TAT 0 Hrs 10 Mins; HEMATOCRIT 45.2 % (40.0-51.0); MANUAL DIFF NO %; WHITE BLOOD CELLS 15.9 10/3/uL (4.5-10.5)
[2016-07-23 20:14] LABS: INTERNATIONAL NORMAL RATI 1.2 UNITS (-); PROTIME (NOT ORD) 15.5 SEC (12.0-14.5)
[2016-07-23 20:15] LABS: PARTIAL THROMBO TIME 33.6 SEC (22.5-37.2)
[2016-07-23 20:20] LABS: ALBUMIN 3.3 G/DL (3.5-5.0); BUN (BLOOD UREA NITROGEN) 21 MG/DL (6-23); CALCIUM, SERUM 9.3 MG/DL (8.5-10.4); CHLORIDE, SERUM 107 MMOL/L (96-112); CO2 (CARBON DIOXIDE) 27 MMOL/L (24-34); CREATININE 1.47 MG/DL (0.70-1.30); DIRECT BILIRUBIN 0.1 MG/DL (0.0-0.4); GFR AFRICAN AMERICAN 50 ML/MIN (>=60); GFR NON AFRICAN AMERICAN 43 ML/MIN (>=60); GLUCOSE, SERUM 104 MG/DL (60-99); POTASSIUM, SERUM 4.6 MMOL/L (3.5-5.3); SGOT(AST) 30 U/L (5-40); SGPT(ALT) 29 U/L (5-65); SODIUM, SERUM 141 MMOL/L (135-148)
[2016-07-23 20:23] LABS: LACTATE 1.6 MMOL/L (0.3-2.4)
[2016-07-23 20:34] LABS: A/G RATIO 0.7 (0.7-1.9); GLOBULIN 4.8 G/DL (2.5-4.1); TOTAL PROTEIN 8.1 G/DL (6.0-8.5)
[2016-07-23 20:35] LABS: ALKALINE PHOSPHATASE 130 U/L (45-117); INDIRECT BILIRUBIN(NOT ORDER) 0.3 MG/DL (0.1-0.9); TOTAL BILIRUBIN 0.4 MG/DL (0-1.2)
[2016-07-23 21:37] LABS: PROCALCITONIN 0.08 ng/mL (<0.5)
[2016-07-23] MEDS ORDERED: HALF81 PO (22:26)
[2016-07-23] MEDS ORDERED: ELIQUIS 5 MG TAB5 MG PO (22:27)
[2016-07-23] MEDS ORDERED: REMERON30 MG PO (22:27)
[2016-07-23] MEDS ORDERED: LOP50 PO (22:27)
[2016-07-23] MEDS ORDERED: LAN125 PO (22:27)
[2016-07-23] MEDS ORDERED: CRESTOR10 PO (22:28)
[2016-07-23] MEDS ORDERED: RISAQUAD CAPSULE PO (22:28)
[2016-07-23] MEDS ORDERED: PRILOSEC40 MG PO (22:28)
[2016-07-23] MEDS ORDERED: MAXIMUM D3 (22:29)
[2016-07-23] MEDS ORDERED: 8 HOUR650 MG PO (22:29)
[2016-07-23] MEDS ORDERED: FLOMAX4 PO (22:29)
[2016-07-23 22:35] LABS: ASCORBIC ACID (UR NOT ORDER) NEG (NEG); BILIRUBIN, URINE NEGATIVE (NEG); ER URINALYSIS TAT 0 Hrs 09 Mins; KETONE, URINE TRACE MG/DL (NEG); LEUKOCYTE ESTERASE(NOT OR NEG (NEG); NITRITE (URINE) NEG (NEG); WBC (NOT ORDERED) (RFLEX) < 1 (0-5)
[2016-07-24 10:29] LABS: DIGOXIN 0.7 NG/ML (0.8-2.0)
[2016-07-25 06:32] LABS: BASOPHILS 0.1 %; BASOPHILS ABSOLUTE 0.01 10/3/uL (0.0-0.16); EOSINOPHILS 0.1 %; EOSINOPHILS ABSOLUTE 0.01 10/3/uL (0.0-0.53); HEMOGLOBIN 13.1 g/dL (13.6-17.8); IMMATURE GRANULOCYTES 0.4 %; IMMATURE GRANULOCYTES ABSOLUTE 0.03 10/3/uL (0.0-0.11); LYMPHOCYTES 6.8 %; MEAN CORPUSCULAR HEMOGLOB 31.6 pg (26.0-34.0); MEAN CORPUSCULAR VOLUME 95.9 fL (80-100); MEAN PLATELET VOLUME 10.6 fL (9.2-13.0); MONOCYTES 13.1 %; MONOCYTES ABSOLUTE 0.97 10/3/uL (0.21-1.20); NEUTROPHILS 79.5 %; NEUTROPHILS ABSOLUTE 5.87 10/3/uL (2.02-8.40); PLATELET COUNT 206 10/3/uL (150-400); RBC DISTRIBUTION WIDTH 14.6 % (12.0-16.0); RED CELL COUNT 4.14 10/6/uL (4.7-6.1)
[2016-07-25 06:35] LABS: WHITE BLOOD CELLS 7.4 10/3/uL (4.5-10.5)
[2016-07-25 06:36] LABS: HEMATOCRIT 39.7 % (40.0-51.0); MANUAL DIFF NO %
[2016-07-25 06:43] LABS: CHLORIDE, SERUM 108 MMOL/L (96-112); CO2 (CARBON DIOXIDE) 24 MMOL/L (24-34); POTASSIUM, SERUM 3.8 MMOL/L (3.5-5.3); SODIUM, SERUM 138 MMOL/L (135-148)
[2016-07-25 06:44] LABS: BUN (BLOOD UREA NITROGEN) 13 MG/DL (6-23); CALCIUM, SERUM 8.1 MG/DL (8.5-10.4); CREATININE 0.97 MG/DL (0.70-1.30); GFR AFRICAN AMERICAN 83 ML/MIN (>=60); GFR NON AFRICAN AMERICAN 71 ML/MIN (>=60); GLUCOSE, SERUM 80 MG/DL (60-99)
== END 2016-07-25 18:43 | disposition home or self-care (01) | DRG 684 ==
LOC: ER 20:03 → 7NO 07-24 00:30
PROVIDERS: Internal Medicine; Nurse Practitioner
DX: N17.9 Acute kidney failure, unspecified (principal); I48.91 Unspecified atrial fibrillation; E86.0 Dehydration; A08.4 Viral intestinal infection, unspecified; E78.5 Hyperlipidemia, unspecified; Z86.73 Personal history of transient ischemic attack (TIA), and cerebral infarction without residual deficits; I25.10 Atherosclerotic heart disease of native coronary artery without angina pectoris; Z95.5 Presence of coronary angioplasty implant and graft; Z79.01 Long term (current) use of anticoagulants; Z79.82 Long term (current) use of aspirin
CPT/HCPCS: 71010; 74176; 76705; 80048; 80053; 80162; 81001; 82248; 82570; 83605; 83690; 83935; 84145; 84300; 85025; 85610; 85730; 87040; 87045; 87046; 87046-59; 87328; 87329; 87493; 87493-59; 87899; 87899-59; 89055; 93005; 96374; 96376; 99285; A9270-GY; J2543